=== PATIENT | female | born 1945 | race Caucasian/White ===

== ENCOUNTER 2019-01-21 15:00 | Inpatient (IN) ==
[2019-01-21 18:22] LABS: Appearance,Urine CLEAR; Bilirubin,Urine NEG (NEG); Color,Urine STRAW; Culture Indicated,Urine NO; Glucose,Urine (UA) NEGATIVE (NEG); Ketones,Urine NEG (NEG); Leukocyte Esterase,Urine NEG /uL (NEG); Nitrate,Urine NEG (NEG); Protein,Urine NEG (NEG); Specific Gravity,Urine 1.027 (1.000-1.035); Urine Blood NEG mg/dL (<0.03); Urobilinogen,Urine NEG (NEG)
[2019-01-21 20:24] LABS: Basophils # (Auto) 0 K/mcL (0.0-0.3); Basophils % (Auto) 0.5 % (0.0-2.0); Eosinophils # (Auto) 0.1 K/mcL (0.0-0.7); Eosinophils % (Auto) 2.1 % (0.0-7.0); Granulocytes % (Auto) 61.4 % (38.0-78.0); Hematocrit 41.6 % (36.0-48.0); Hemoglobin 13.6 g/dL (12.0-15.0); Lymphocytes # (Auto) 1.9 K/mcL (1.5-4.8); Lymphocytes % (Auto) 29.2 % (15.5-49.0); Mean Cell Volume 91.1 fL (80.0-100.0); Mean Corpuscular HGB Conc 32.6 g/dL (31.0-36.0); Mean Platelet Volume 8.9 fL (7.4-10.4); Monocytes # (Auto) 0.4 K/mcL (0.1-0.9); Monocytes % (Auto) 6.8 % (1.0-12.0); Platelet Count 347 K/mcL (140-440); RBC 4.56 M/mcL (4.00-5.20); Red Cell Distribution Width 12.9 % (11.5-14.5); WBC 6.3 K/mcL (4.5-11.0)
[2019-01-21 20:41] LABS: Blood Urea Nitrogen 18 mg/dl (8-23); Calcium 9.8 mg/dl (8.6-10.4); Carbon Dioxide 27 mmol/L (22-30); Chloride 99 mmol/L (96-108); Glomerular Filtration Rate 73; Glucose 91 mg/dL (70-105)
[2019-01-21 20:57] LABS: Estimated Average Glucose(eAG) 111 mg/dL; Hemoglobin A1C 5.5 % HGB (4.0-6.0)
[2019-01-30] MEDS ORDERED: IPRATROPIUM/ALBUTEROL 3 ML AMPUL.NEB NEB PRN (05:00)
[2019-01-30] MEDS ORDERED: SCOPOLAMINE 1 PATCH PATCH TOPICAL PRN (05:00)
[2019-01-30] MEDS ORDERED: PREGABALIN 75 MG CAPSULE PO SCH (06:00)
[2019-01-30] MEDS ORDERED: ceFAZolin 2 GM in DEXTROSE 5% IN WATER 50 ML IV SCH (06:00)
[2019-01-30] MEDS ORDERED: CELECOXIB 200 MG CAPSULE PO SCH (06:00)
[2019-01-30] MEDS ORDERED: oxyCODONE 10 MG TAB.ER.12H PO SCH (06:00)
[2019-02-07] MEDS ORDERED: ceFAZolin 2 GM in DEXTROSE 5% IN WATER 50 ML IV SCH (06:00)
[2019-02-07] MEDS ORDERED: oxyCODONE 10 MG TAB.ER.12H PO SCH (06:00)
[2019-02-07] MEDS ORDERED: PREGABALIN 75 MG CAPSULE PO SCH (06:00)
[2019-02-07] MEDS ORDERED: CELECOXIB 200 MG CAPSULE PO SCH (06:00)
[2019-02-07] MEDS ORDERED: KETAMINE 100 MG/ML ML IV ONE (12:45)
[2019-02-07] MEDS ORDERED: TRANEXAMIC ACID 1,000 MG/10 ML VIAL IV ONE ×2 (12:45→14:20)
[2019-02-07] MEDS ORDERED: fentaNYL 250 MCG/5 ML VIAL IV ONE (12:45)
[2019-02-07] MEDS ORDERED: DEXAMETHASONE 10 MG/ML VIAL IV ONE (12:45)
[2019-02-07] MEDS ORDERED: PROPOFOL 200 MG/20 ML VIAL IV ONE (12:45)
[2019-02-07] MEDS ORDERED: ePHEDrine 50 MG/ML AMPUL IV ONE (12:45)
[2019-02-07] MEDS ORDERED: LIDOCAINE HCL/PF 100 MG/5 ML SYRINGE IV ONE (12:45)
[2019-02-07] MEDS ORDERED: SUCCINYLCHOLINE 20 MG/ML ML IV ONE (12:45)
[2019-02-07] MEDS ORDERED: ONDANSETRON 4 MG/2 ML VIAL IV ONE (12:45)
[2019-02-07] MEDS ORDERED: BUPIVACAINE W/EPI 0.5% 50 ML VIAL IJ ONE (13:16)
[2019-02-07] MEDS ORDERED: BENZOCAINE/MENTHOL 1 LOZENGE PO PRN ×2 (14:14→14:20)
[2019-02-07] MEDS ORDERED: METHOCARBAMOL 1,000 MG/10 ML VIAL IV PRN (14:14)
[2019-02-07] MEDS ORDERED: PROMETHAZINE 25 MG/ML VIAL IV PRN ×2 (14:14→20:23)
[2019-02-07] MEDS ORDERED: diphenhydrAMINE 50 MG/ML VIAL IV PRN (14:14)
[2019-02-07] MEDS ORDERED: IPRATROPIUM/ALBUTEROL 3 ML AMPUL.NEB NEB PRN (14:14)
[2019-02-07] MEDS ORDERED: ACETAMINOPHEN 1,000 MG/100 ML BOTTLE IV ONE (14:14)
[2019-02-07] MEDS ORDERED: NALOXONE HCL 0.4 MG/ML VIAL IV PRN (14:14)
[2019-02-07] MEDS ORDERED: fentaNYL 100 MCG/2 ML VIAL IV PRN (14:14)
[2019-02-07] MEDS ORDERED: LACTATED RINGERS 250 ML IV PRN (14:14)
[2019-02-07] MEDS ORDERED: HYDROmorphone 2 MG/ML VIAL IV PRN ×2 (14:14→14:20)
[2019-02-07] MEDS ORDERED: ONDANSETRON 4 MG/2 ML VIAL IV PRN ×2 (14:14→14:20)
[2019-02-07] MEDS ORDERED: MEPERIDINE 25 MG/ML SYRINGE IV PRN (14:14)
[2019-02-07] MEDS ORDERED: FLUMAZENIL 0.1 MG/ML ML IV PRN (14:14)
[2019-02-07] MEDS ORDERED: LACTATED RINGERS 1,000 ML IV SCH (14:15)
--- NOTE | 2019-02-07 14:19 | Brief Operative Note ---
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
[2019-02-07] MEDS ORDERED: KETOROLAC 15 MG/ML VIAL IV PRN (14:20)
[2019-02-07] MEDS ORDERED: POLYETHYLENE GLYCOL 3350 17 GM PACKET PO PRN (14:20)
[2019-02-07] MEDS ORDERED: oxyCODONE/APAP 5/325MG TABLET PO PRN (14:20)
[2019-02-07] MEDS ORDERED: MAGNESIUM HYDROXIDE 30 ML ORAL.SUSP PO PRN (14:20)
[2019-02-07] MEDS ORDERED: FLEETS ADULT ENEMA PR PRN (14:20)
[2019-02-07] MEDS ORDERED: BISACODYL 10 MG SUPP.RECT PR PRN (14:20)
[2019-02-07] MEDS ORDERED: ACETAMINOPHEN 500 MG TABLET PO PRN (14:23)
--- NOTE | 2019-02-07 15:02 | Discharge Summary ---
Providers - Providers Patient information: Note initiated : 02/07/19 at 2:58 pm Service Date, if different from initiated Date: [] Patient: Jane Jesus 73 y/o F admitted on 02/07/19 for Right Reverse total SHoulder Arthroplasty. Chief Complaint: [] Discharge date: 02/08/19 Hospitalization Hospital Course: Pt was admitted for a R Reverse TSA. Pt underwent the procedure on the day of admission. Pt was transferred to the floor for IV pain meds, IV abx and PT. Pt discharged on post-op day 1. Pt will take ASA for DVT prophylaxis. f/u in 2 weeks at [place]. Discharge diagnosis: R shoulder rotator cuff arthropathy Exam - Exam Weight bearing status: as tolerated Ortho Discharge - TSA - Patient Instructions Diet: Regular Diet Activity: non weight bearing Total Shoulder Protocol: Leave immobilizer in place except for bathing and ROM. Abduction pillow. Continue to wear sling until seen by physician. Codman Pendulum : These exercises use momentum produced by your body to move your shoulder joint. Bend your knees and shift your weight to your front leg, then back, allowing your arm to swing in the same directions. Using the same technique, alternately shift your weight between your right and left legs, allowing your arm to swing from side to side. These exercises are also performed in counterclockwise and clockwise circular motions. Typically these exercises are performed several times per day, for a set number repetitions or minutes, such as 20 times in a row or 5 minutes at a time. Dressing Care: May shower in 2 days - Follow Up Plan Follow Up Appointments: Mj Sanchez PA-C [Physician Events Manager] - 02/14/19 9:20 am Disposition: Home, Self-Care Prognosis: Good Rehab Potential: Good Overall status at discharge: patient is progressing back to baseline - Orders For Discharge Prescriptions: oxyCODONE/APAP [Percocet 5-325 mg] 1 - 2 tab PO Q4HP PRN #75 tab PRN Reason: Per Pain Protocol Prescription Printed Pending Studies Resuscitation Status Full Code Diet Regular Diet Start MonFeb 07 1422 Celecoxib (Celebrex) 200 mg PO PREOP TOD Stop: 02/07/19 15:00 Last Admin: 02/07/19 10:47 Dose: 200 mg Documented by: COBY Cefazolin Sodium 2 gm/ (Dextrose) 50 mls @ 100 mls/hr IV PREOP TOD Stop: 02/07/19 15:00 Last Admin: 02/07/19 12:30 Dose: 100 mls/hr Documented by: [email or web address] Oxycodone HCl (Oxycontin) 10 mg PO PREOP TOD Stop: 02/07/19 15:00 Last Admin: 02/07/19 10:47 Dose: 10 mg Documented by: COBY Pregabalin (Lyrica) 75 mg PO PREOP TOD Stop: 02/07/19 15:00 Last Admin: 02/07/19 10:47 Dose: 75 mg Documented by: COBY
--- NOTE | 2019-02-07 15:33 | XRay Report ---
CLINICAL INFORMATION: Postsurgical follow-up TECHNIQUE: AP and axillary views of the right shoulder COMPARISON: None. FINDINGS: Status post right reverse shoulder arthroplasty. Prosthetic components. Anatomic. There is postsurgical soft tissue gas IMPRESSION: Right reverse shoulder arthroplasty Interpreted and Authenticated by: Gabriel Adamson 02/07/19
[2019-02-07] MEDS: 0.9 % SODIUM CHLORIDE 1,000 ML IV SCH (15:51)
--- NOTE | 2019-02-07 16:24 | Operative Note ---
DATE OF OPERATION: 02/07/2019 PREOPERATIVE DIAGNOSIS: Right shoulder failed rotator cuff repair with developing arthrosis. POSTOPERATIVE DIAGNOSIS: Right shoulder failed rotator cuff repair with developing arthrosis. PROCEDURE PERFORMED: 1. Right reverse total shoulder arthroplasty placing a Tornier Perform long size 4 humeral stem, a zero-thickness high offset tray with a 6 mm humeral insert on a 25 mm lateralized baseplate, and a 36 mm with 2 mm inferior offset glenosphere. 2. Hardware removal deep of rotator cuff anchor. SURGEON: Yariel Soliz M.D. TELESALES MANAGER: Oswaldo Sanchez PA-C. The PA's assistance was required for the safe and efficient completion of the entire case. This provider's expertise and technical skill were required throughout the case. The PA assisted with preoperative coordination, intraoperative retraction, wound closure, dressing and splint application, as well as postoperative documentation and care coordination. ANESTHESIA: General. DRAINS: None. SPECIMENS: The removed rotator cuff anchor which was discarded, as well as humeral head which was discarded. BLOOD LOSS: 250 mL. COMPLICATIONS: None. POSTOPERATIVE CONDITION: Stable. INDICATIONS FOR SURGERY: This is a 73-year-old female who has a history of previous rotator cuff repair done by de. She had done well initially, but then had developed increasing pain and weakness. MRI obtained showed recurrent large rotator cuff tear. Radiographs showed developing arthropathy and joint space narrowing. FINDINGS AT SURGERY: She did have cartilage loss off the humeral head with torn supraspinatus and infraspinatus. Post implantation showed good joint stability and range of motion. PROCEDURE IN DETAIL: The patient had been seen preoperatively. Informed consent had been obtained after discussion of risks and benefits of surgery. Risks including, but not limited to, bleeding; infection; injury to nerves, blood vessels, other surrounding structures; anesthetic risks; incomplete or no resolution of symptoms; dislocation; fracture; weakness; loss of motion; possibility of needing further surgery. She understood and wished to proceed. Correct operative site was marked and then patient was taken to the operating room. General anesthesia was induced. She was carefully positioned in the beach chair position and pressure points carefully padded. Right shoulder and upper extremity were then carefully prepped and draped in normal sterile fashion, and a timeout was performed verifying patient name, operative site, and plan. Ioban was used to cover all skin surfaces and then a standard deltopectoral incision was made with a scalpel through skin and subcutaneous tissue. Hemostasis was obtained with Bovie cautery and then careful blunt dissection taken down onto the cephalic vein. IrriSept was irrigated and then careful blunt dissection was taken medial to the vein, dissecting it lateral with the deltoid. Blunt finger dissection was used to work down through this interval and then develop the subdeltoid space. Tang deltoid retractor was placed. The lateral edge of the conjoined tendon was identified and a blue handle retractor placed underneath. The bicipital groove was palpated. This was opened with the Bovie and the biceps had previously been tenodesed. We went ahead and then performed a lesser tuberosity osteotomy. The subscap was partially intact. We placed a traction stitch around this and then started to externally rotate to dislocate the humeral head out anteriorly. Capsule was released around the inferior neck and then curved osteotome used to remove osteophytes inferiorly. I then used the cutting guide pin anatomic to make our humeral head cut. We then used the awl to identify the canal and then sounders were used to try and get a size for the stem. We then did the box cutting osteotome off of the sounder to open the proximal humerus. We then broached up to a size 4. We did minimal calcar planing and then a cut protector was screwed onto the stem. We then subluxed this posteriorly and began to expose the glenoid. Labrum was excised circumferentially. We carefully released capsule around the inferior glenoid, gently retracting soft tissue away from the Bovie and this was kept right on bone. Once we had adequate exposure, a 10-degree cephalic tilt guide was placed flush with the inferior margin of the glenoid and a pin was drilled. We then used a 25 reamer and I reamed until I had contacted bone circumferentially. I then drilled the central peg over top of the guide pin. The drill was then drilled through and depth gauge used to determine our central screw length and then a baseplate and screw were assembled. I chose a lateralized baseplate. We irrigated IrriSept in the glenoid, after waiting a minute copiously pulse lavaged with saline. We then advanced the screw and baseplate down until this was firmly against the glenoid and excellent fixation. I then drilled and placed the four peripheral screws. Superior and inferior were locking. Anterior and posterior were nonlocking. At this point, we then opened a 2 mm inferior offset 36 mm glenosphere, which was positioned with the offset inferiorly, and then pushed onto the baseplate. I impacted with a couple of taps with the mallet, and then advanced the screw until it was completely tight. It then re-exposed the proximal humerus. We opened a high offset zero-thickness tray and a 6 insert trial. I then went to reduce the shoulder. This did take some effort to get it to start to reduce, and I did not fully reduce it as I felt redislocation might be difficult. We then removed the trial, and we opened a 4 long stem with the tray and insert that was assembled in the back. I irrigated IrriSept down the humeral canal. After a minute, I pulse lavaged with saline. We then impacted the stem. It did seat down on our osteotomy. We then reduced the shoulder with satisfying tension. It was very stable throughout range of motion. I irrigated the joint with IrriSept again, after a minute pulse lavaged with saline again, and then two holes were made in the bicipital groove. A #2 FiberWire [id number] was used through the holes and then around the osteotomized fragment creating a [id number] over top of the osteotomy. This was reduced and sutures tied and cut. A second suture was placed just proximal to this of #2 FiberWire. I then used the traction suture and used a free needle and passed this through bone lateral of the bicipital groove and then these were tied. This gave us an anatomic, stable repair of the subscapularis. I then used #1 Vicryl running stitch to close the deltopectoral interval. Final IrriSept irrigation was done, after a minute final pulse lavage, then 2-0 Monocryl was used for subcutaneous and milagro for skin. Xeroform and sterile dressing were applied. Arm was placed in an abductor immobilizer. The patient was awakened, extubated, and transferred to recovery in stable condition. JAVIER:yamileth Job ID: [id number] Doc ID: [id number] Yariel Soliz MD
[2019-02-07] MEDS: ceFAZolin 1 GM VIAL IV SCH (20:13)
[2019-02-07] MEDS: 0.9 % SODIUM CHLORIDE 10 ML SYRINGE IV SCH (20:52)
[2019-02-07] MEDS ORDERED: DILTIAZEM 120 MG CAP.XL.24H PO SCH (21:00)
[2019-02-07] MEDS ORDERED: ACETAMINOPHEN/DIPHENHYDRAMINE 1 TABLET PO SCH (21:00)
[2019-02-07] MEDS ORDERED: LISINOPRIL 20 MG TABLET PO SCH (21:00)
[2019-02-07] MEDS ORDERED: SENNOSIDES 1 TABLET PO SCH (21:00)
[2019-02-07] MEDS: DOCUSATE SODIUM 100 MG CAPSULE PO SCH (21:24)
[2019-02-08] MEDS: 0.9 % SODIUM CHLORIDE 1,000 ML IV SCH ×2 (01:50→11:31)
[2019-02-08] MEDS: ceFAZolin 1 GM VIAL IV SCH (04:32)
[2019-02-08] MEDS: 0.9 % SODIUM CHLORIDE 10 ML SYRINGE IV SCH (04:32)
[2019-02-08] MEDS ORDERED: GLUCOSAMINE/CHONDROITIN SULF A 1 CAP CAPSULE PO SCH (09:00)
[2019-02-08] MEDS ORDERED: RED YEAST RICE 600 MG PO SCH (09:00)
[2019-02-08] MEDS ORDERED: NIACIN 250 MG CAP.SR.12H PO SCH (09:00)
[2019-02-08] MEDS ORDERED: HYDROCHLOROTHIAZIDE 25 MG TABLET PO SCH (09:00)
[2019-02-08] MEDS ORDERED: LISINOPRIL 20 MG TABLET PO SCH (09:00)
--- NOTE | 2019-02-08 09:42 | Orthopedic Progress Note ---
Subjective Patient information: Note initiated : 02/08/19 at 9:40 am Service Date, if different from initiated Date: [] Patient: Jane Jesus 73 y/o F admitted on 02/07/19 for Right Reverse total SHoulder Arthroplasty. Chief Complaint: [] Principal diagnosis: s/p R reverse total shoulder Interval history: c/o nausea, pain controlled Objective Vital signs: Vital Signs Temp Pulse Resp BP Pulse Ox 02/08/19 08:00 98.6 F 85 18 98/67 91 02/08/19 03:14 98.1 F 71 18 110/62 91 02/07/19 23:58 98.8 F 69 16 142/71 94 02/07/19 20:00 98.2 F 75 18 136/78 94 02/07/19 17:12 70 135/84 92 02/07/19 16:42 71 150/75 93 02/07/19 16:28 66 138/76 93 02/07/19 16:12 74 138/75 92 02/07/19 15:57 75 147/82 93 02/07/19 15:42 73 131/83 93 02/07/19 15:35 97.3 F 81 14 128/67 94 02/07/19 15:25 97.3 F 77 13 129/61 94 02/07/19 15:10 78 18 132/64 92 02/07/19 14:55 82 14 126/70 93 02/07/19 14:40 97.7 F 72 12 123/61 96 Intake and Output 02/07/19 02/08/19 02/08/19 21:59 05:59 13:59 Intake Total 1999 1360 762 Output Total 150 250 150 Balance 1850 1110 612 Intake: IV 100 1000 762 Sodium Chloride 0.9% 1,000 ml @ 1000 762 100 mls/hr IV .Q10H TOD Rx#: [id number] Oral 360 IV - Manual Only 1900 Output: Void Amount 250 150 Estimated Blood Loss 150 Other: Meal Dinner Percent of Meal Consumed 0% Urine Appearance Clear Clear Urine Color Dark Yellow Bright Yellow # Voids 1 1 Weight 220 lb Intake & Output: Intake & Output 02/07/19 02/08/19 02/08/19 21:59 05:59 13:59 Intake Total 1999 1360 762 Output Total 150 250 150 Balance 1850 1110 612 Weight 220 lb Intake: IV 100 1000 762 Sodium Chloride 0.9% 1,000 ml @ 1000 762 100 mls/hr IV .Q10H TOD Rx#: [id number] Oral 360 IV - Manual Only 1900 Output: Void Amount 250 150 Estimated Blood Loss 150 Other: Meal Dinner Percent of Meal Consumed 0% Urine Appearance Clear Clear Urine Color Dark Yellow Bright Yellow # Voids 1 1 Dressing: Yes clean, Yes dry, Yes intact Neurological exam IM: Yes oriented X3, Yes neurovascular intact - Labs CBC & BMP: 01/21/19 15:42 01/21/19 15:42 Labs: 01/21/19 15:42 Hgb 13.6 Hct 41.6 Assessment and Plan (1) S/p reverse total shoulder arthroplasty POD#1-stable -d/c home Status: Acute
[2019-02-08] MEDS: DOCUSATE SODIUM 100 MG CAPSULE PO SCH (11:30)
== END 2019-02-08 10:50 | disposition home or self-care (01) | DRG 483 ==
LOC: MEDSUR 02-07 09:04
PROVIDERS: ADMIT Orthopaedic Surgery; ATTEND Orthopaedic Surgery